=== PATIENT | male | born 1950 | race Caucasian/White ===

== ENCOUNTER → 2018-12-05 | Outpatient (CLI) | payer OTHER ==
--- NOTE | 2018-12-05 17:43 | RAD ---
2 view study of the left hip Clinical indications: Left hip pain. No known injury. FINDINGS: No acute fracture or dislocation or lytic process or significant arthritic change is seen IMPRESSION: No significant osseous abnormality. Electronically signed by: Jeramy Davis MD (12/05/2018 5:40 PM) [place] [id number]
== END | disposition home or self-care (01) ==
LOC: RAD 11:49
PROVIDERS: ATTEND Family Medicine
DX: M25.552 Pain in left hip (principal)
CPT/HCPCS: 73502